=== PATIENT | female | born 1970 | race Caucasian/White ===

== ENCOUNTER 2017-02-02 09:30 | Inpatient (IN) | payer MEDICAID ==
[~2017-02-02] VITALS: Ht 157.5 cm; Wt 86.4 kg
[2017-02-02] MEDS ORDERED: EFFEXOR XR150 MG PO (10:26)
[2017-02-02] MEDS ORDERED: GLUCOPHAGE500 MG PO ×2 (10:26)
[2017-02-02] MEDS ORDERED: TOPROL XL25 MG PO (10:27)
[2017-02-02] MEDS ORDERED: SYNTHROID175 MCG PO (10:27)
[2017-02-02] MEDS ORDERED: FERROUS SULFAT325 MG PO (10:27)
[2017-02-02] MEDS ORDERED: KLONOPIN1 MG PO (10:28)
[2017-02-02] MEDS ORDERED: OMEPRAZOLE20 M1 PO (10:28)
[2017-02-02] MEDS ORDERED: VITAMIN D250000 UNIT PO (10:29)
[2017-02-02] MEDS ORDERED: ULTRAM50 MG PO (10:29)
[2017-02-02] MEDS ORDERED: PHENERGAN25 M1 PO (10:30)
[2017-02-03] MEDS ORDERED: VITAMIN B-1000 MCG/M IM (09:17)
[2017-02-03] MEDS ORDERED: ACETAMINOPHEN500 M1 PO (09:18)
[2017-02-03 09:35] VITALS: BP 123/71; BMI 34.8
[2017-02-03 10:21] LABS: HEMATOCRIT 43.9 % (36.0-48.0); HEMOGLOBIN 14.2 g/dL (12-16); MCH 27.7 pg (26.0-34.0); MCHC 32.3 g/dL (31.0-37.0); MCV 85.7 fL (80.0-100.0); MEAN PLATELET VOLUME 9.8 fL (7.4-10.4); RBC 5.12 10x6/uL (4.00-5.40); RDW 18.7 % (11.5-14.5); WBC 6.3 10x3/uL (4.8-10.8)
[2017-02-03 10:29] LABS: CALC OSMOLALITY 276 mosm/kg (275-300); CALCIUM 9.4 mg/dL (8.5-10.1); CARBON DIOXIDE 27.3 mmol/L (21.0-32.0); CHLORIDE - SERUM 104 mmol/L (98-107); CREATININE - SERUM 0.6 mg/dL (0.6-1.3); GLUCOSE 111 mg/dL (74-106); POTASSIUM - SERUM 3.8 mmol/L (3.5-5.1); SODIUM 138 mmol/L (136-145); UREA NITROGEN 13 mg/dL (7-18); eGFR NON AFRICAN AMERICAN > 90 mL/min (90-120)
--- NOTE | 2017-02-03 16:54 | NUR ---
STERI-STRIPS OVER DERMABOND X3 TO ABDOMEN
[2017-02-03 17:11] VITALS: BP 87/44
[2017-02-03 17:18] VITALS: BP 91/49; Ht 157.5 cm; Wt 86.4 kg
--- NOTE | 2017-02-03 18:06 | OP ---
PATIENT NAME: DEEDEE KIM MEDICAL RECORD: [id number] :66 LOCATION:[id number] ADMISSION DATE:02/03/17 SURGEON: MARTY MANN MD DATE OF OPERATION: 02/03/2017 DATE OF OPERATION: 02/03/2017 SURGEON: Marty Mann MD PREOPERATIVE DIAGNOSES: 1. Nondiabetic gastroparesis. 2. Gastroesophageal reflux disease. 3. Chronic constipation. POSTOPERATIVE DIAGNOSES: 1. Nondiabetic gastroparesis. 2. Gastroesophageal reflux disease. 3. Chronic constipation. PROCEDURE PERFORMED: Laparoscopic pyloromyotomy. ANESTHESIA: General. COMPLICATIONS: None. SPECIMENS: None. ESTIMATED BLOOD LOSS: 10 cc. The case was clean. OPERATIVE COURSE: After consent was obtained, the patient was taken to the operating room and placed in supine position on the operating table. Next, general anesthesia was given via endotracheal intubation after a timeout was performed to confirm the correct patient and procedure. Next, local anesthetic was injected just above the umbilicus. A stab incision was made with 11-blade scalpel. Using a 5-mm bladeless optical trocar, the abdomen was entered under direct laparoscopic vision. Adequate pneumoperitoneum was achieved. The abdominal cavity was inspected. No evidence of bowel injury. No evidence of bleeding. At this time, 3 additional trocars were placed in direct laparoscopic vision after the administration of local anesthetic, a 5-mm trocar in the right lateral quadrant, a 5-mm trocar in the left lateral quadrant and an 11-mm trocar in the right lateral quadrant. Next, the pylorus was identified. A pyloromyotomy was performed using the cautery hook. Dissection through the pyloric muscle was done without full thickness injury to the mucosa. The mucosa was intact and bulging out. The pyloromyotomy was extended approximately 3 cm both proximal and distal to the pylorus. Next, a pyloroplasty was performed using a 3-0 Stratafix suture in 2 layers. After the pyloroplasty was completed, the needle was removed. The abdominal cavity was irrigated and suctioned. The abdominal cavity was inspected. There was no evidence of bowel injury, no evidence of bleeding. The 11-mm trocar was removed. The 11-mm trocar was closed with an 0 Vicryl suture and a Vinny-Staci suture passer. At this time, all the remaining instruments were removed. The abdomen was desufflated. Trocars were removed. Skin was closed with 4-0 Monocryl, Mastisol and Steri-Strips. At the end of the case, all needle and instrument counts were OPERATIVE REPORT [id number] DEEDEE KIM. No complications occurred. The patient was extubated and transferred to the PACU in stable condition. TRANSINT:[id number] Voice Confirmation ID: [id number] DOCUMENT ID: [id number] MARTY MANN MD at 1806 CC: [id number] DICTATION DATE: 02/03/17 1606 [employer] PRODUCTION ENGINEER: 02/03/17 1706 ADM IN [place] [id number] [place] [id number]
--- NOTE | 2017-02-03 19:01 | NUR ---
RESTING QUIETLY NAD NOTED
--- NOTE | 2017-02-04 03:05 | NUR ---
PATIENT IS AWAKE, ALERT AND ORIENTED X'S 4. RESPIRATIONS ARE EVEN AND UNLABORED ON ROOM AIR. PATIENT DILAN NEEDS AT THIS TIME. BED IN LOWEST POSITION, CALL LIGHT IN REACH. BED RIALS UP X'S 2.
[2017-02-04 04:00] VITALS: BP 93/50
[2017-02-04 06:24] LABS: BASOPHILS 0.3 % (0-2); EOSINOPHILS 0 % (0-7); HEMATOCRIT 39.4 % (36.0-48.0); HEMOGLOBIN 12.4 g/dL (12-16); IMMATURE GRANULOCYTES 0.4 % (0-5); LYMPHOCYTES 34.1 % (15-50); MCH 27.4 pg (26.0-34.0); MCHC 31.5 g/dL (31.0-37.0); MCV 87.2 fL (80.0-100.0); MEAN PLATELET VOLUME 9.7 fL (7.4-10.4); MONOCYTES 9.1 % (2-11); NEUTROPHILS 56.1 % (40-80); PLATELET COUNT 285 10x3/uL (130-400); RBC 4.52 10x6/uL (4.00-5.40); RDW 18.8 % (11.5-14.5); WBC 7.4 10x3/uL (4.8-10.8)
[2017-02-04 06:51] LABS: ALBUMIN 2.9 g/dL (3.4-5.0); ALKALINE PHOSPHATASE 43 U/L (46-116); ALT (SGPT) 31 U/L (10-68); CALC OSMOLALITY 277 mosm/kg (275-300); CALCIUM 8.4 mg/dL (8.5-10.1); CARBON DIOXIDE 26.3 mmol/L (21.0-32.0); CHLORIDE - SERUM 105 mmol/L (98-107); CREATININE - SERUM 0.7 mg/dL (0.6-1.3); GLUCOSE 94 mg/dL (74-106); POTASSIUM - SERUM 3.6 mmol/L (3.5-5.1); PROTEIN - SERUM 5.8 g/dL (6.4-8.2); SODIUM 139 mmol/L (136-145); UREA NITROGEN 13 mg/dL (7-18); eGFR NON AFRICAN AMERICAN > 90 mL/min (90-120)
[2017-02-04 07:58] VITALS: BP 97/48
--- NOTE | 2017-02-04 10:09 | NUR ---
PT SEEN THIS AM EARILER. COMPLAINTS OF PAIN AT THAT TIME TO ABDOMEN 7/10. MEDS GIVEN. NOW STATES PAIN IS 5/10 AND NAUSEATED. MEDS GIVEN FOR NAUSEA. LAP SITES X 4 NOTED-ALL INCISIONS CLEAN DRY AND INTACT. UP IN ROOM. ENCOURAGED TO BE OOB AND TO AMBULATE IN COATS. CALL LIGHT IN REACH
[2017-02-04] MEDS ORDERED: ZOFRAN ODT4 MG/UDTAB PO (10:48)
[2017-02-04] MEDS ORDERED: HYDROCODON-ACE1 EAC7 PO (10:48)
[2017-02-04 12:02] VITALS: BP 107/58
== END 2017-02-04 15:25 | disposition home or self-care (01) | DRG 328 ==
LOC: D.SDCHOLD 02-03 08:33 → D.MS 02-03 08:33 → D.SDCHOLD 02-03 11:30 → D.MS 02-03 16:41
PROVIDERS: Anesthesiology; ADMIT Surgery
PROC: 0D874ZZ Division of Stomach, Pylorus, Percutaneous Endoscopic Approach (ICD-10-PCS; principal; 2017-02-03 11:30)
DX: K31.84 Gastroparesis (principal); K21.9 Gastro-esophageal reflux disease without esophagitis; K59.09 Other constipation